=== PATIENT | female | born 1985 | race African-American/Black ===

== ENCOUNTER 2020-12-06 01:12 | Emergency (ER) | payer BC ==
[~2020-12-06] VITALS: Ht 170.2 cm; Wt 62.0 kg
[2020-12-06] MEDS ORDERED: LORAZEPAM 1MG TABLET PO ONE (01:45)
[2020-12-06] MEDS ORDERED: LORAZEPAM 1MG TABLET PO SCH (02:00)
[2020-12-06 04:49] LABS: CHLORIDE 108 mEq/L (98-107)
[2020-12-06 05:02] LABS: HCG SCREEN NEGATIVE
[2020-12-06 05:04] LABS: HEMATOCRIT. 37.5 % (36.0-48.0); HEMOGLOBIN. 12.6 g/dL (12.0-16.0); MEAN CORPUSCULAR VOLUME 93.9 fL (81.0-99.0); RED BLOOD CELL COUNT 3.99 mill/uL (4.2-5.4)
[2020-12-06 05:05] LABS: BASOPHILS % 0.3 % (0.0-2.0); EOSINOPHILS % 0.2 % (0.0-5.0); LYMPHOCYTES % 17.8 % (20.0-50.0); MEAN CORPUSCULAR HEMOGLOBIN 31.6 pg (28.0-32.0); MEAN PLATELET VOLUME 7.3 fl (7.4-10.4); MONOCYTES % 9.4 % (2.0-8.0); NEUTROPHILS % 72.3 % (40.0-76.0); PLATELET 213 x1000/uL (130-400); RED CELL DISTRIBUTION WIDTH 12.2 % (11.6-14.6)
[2020-12-06 07:02] VITALS: BP 115/71
== END 2020-12-06 07:16 | disposition home or self-care (01) ==
LOC: ER 01:12
DX: F41.9 Anxiety disorder, unspecified (principal); R07.9 Chest pain, unspecified; I10 Essential (primary) hypertension; M32.9 Systemic lupus erythematosus, unspecified
CPT/HCPCS: 36415; 71045; 80053; 84484; 84703; 85025; 93005; 99285